=== PATIENT | female | born 1980 | race Caucasian/White ===

== ENCOUNTER 2017-01-10 17:47 | Emergency (ER) | payer MEDICAID ==
[~2017-01-10] VITALS: Ht 152.4 cm; Wt 69.4 kg
[2017-01-10 18:55] VITALS: BP 121/78
== END 2017-01-10 18:55 | disposition home or self-care (01) ==
LOC: ED 17:47
DX: T78.40XA Allergy, unspecified, initial encounter (principal); R21 Rash and other nonspecific skin eruption; X58.XXXA Exposure to other specified factors, initial encounter
CPT/HCPCS: Q0163

== ENCOUNTER 2019-04-18 04:51 | Emergency (ER) | payer MEDICAID ==
[~2019-04-18] VITALS: Ht 152.4 cm; Wt 69.4 kg
[2019-04-18 06:50] LABS: BASOPHIL % 0.1 % (0-2); PLATELET COUNT 269 x10^3mcL (130-400)
[2019-04-18 10:03] LABS: UA SPECIFIC GRAVITY 1.025 (1.005-1.035); microscopic required? YES; urine erythrocyte 2+ (NEGATIVE)
[2019-04-18 10:09] VITALS: BP 106/78
== END 2019-04-18 10:09 | disposition home or self-care (01) ==
LOC: ED 04:51
PROVIDERS: Emergency Medicine
DX: N83.201 Unspecified ovarian cyst, right side (principal)
CPT/HCPCS: J1885; J7030